=== PATIENT | female | born 1980 | race Caucasian/White ===

== ENCOUNTER 2016-10-05 13:17 | Day surgery (SDC) | payer BC ==
--- NOTE | ~2016-10-05 | EGD ---
EGD REPORT [facility] [address] [id number] NAME: PAKO FAIRAS : [birth year] STATUS : REG [facility]#: [id number] AGE: 36 ADM/REG DATE : 10/05/16 MR#: [id number] REPORT SERV DATE: 10/05/16 DICTATED BY: DATE: REPORT STATUS : Draft TRANSCRIBED BY: [employer] DATE: 10/05/16 [facility] Patient Name: Pako Farias Date of : 1980 Attending MD: HAYDEN OLSEN MD Procedure Date No Time: 10/05/2016 Procedure: Colonoscopy Indications: Chronic diarrhea Referring MD: Kierra Holliday Medicines: Monitored Anesthesia Care Complications: No immediate complications. Procedure: Pre-Anesthesia Assessment: - ASA Grade Assessment: III - A patient with severe systemic disease. After I obtained informed consent, the scope was passed under direct vision. Throughout the procedure, the patient's blood pressure, pulse, and oxygen saturations were monitored continuously. The PCF [id number] was introduced through the anus and advanced to the cecum, identified by appendiceal orifice and ileocecal valve. The colonoscopy was performed without difficulty. The patient tolerated the procedure well. The quality of the bowel preparation was fair. Findings: The perianal and digital rectal examinations were normal. A flat polyp was found in the descending colon. The polyp was diminutive in size. The polyp was removed with a cold biopsy forceps. Resection and retrieval were complete. No other significant abnormalities were identified in a careful examination of the remainder of the colon. There is no endoscopic evidence of diverticula, mass or ulcerations in the entire colon. Biopsies were taken with a cold forceps from the entire colon for evaluation of microscopic colitis. No other significant abnormalities were identified in a careful examination of the remainder of the colon. Impression: - One diminutive polyp in the descending colon. Resected and retrieved. Recommendation: - Patient has a contact number available for emergencies. The signs and symptoms of potential delayed complications were discussed with the patient. Return to normal activities tomorrow. Written discharge instructions were provided to the patient. EGD REPORT [address] [address] NAME: PAKO FARIAS : [birth year] STATUS : REG [facility] [place] PAT#: [id number] AGE: 36 ADM/REG DATE : 10/05/16 MR#: [id number] REPORT SERV DATE: 10/05/16 DICTATED BY: DATE: REPORT STATUS : Draft TRANSCRIBED BY: [place] DATE: 10/05/16 - Return to previous diet. - Discharge patient to home. - Continue present medications. - Await pathology results. - Repeat colonoscopy in 5 years for surveillance based on pathology results. - We will treat with 2 week course of Pepto Bismol 2 tabs by mouth 4 times daily. If diarrhea persists, then change omeprazole to lansoprazole OTC. Procedure Code(s): --- Professional --- 21434, Colonoscopy, flexible, proximal to splenic flexure; with biopsy, single or multiple Diagnosis Code(s): --- Professional --- D12.4, Benign neoplasm of descending colon K52.9, Noninfective gastroenteritis and colitis, unspecified CPT copyright 2013 [employer]. All rights reserved. The codes documented in this report are preliminary and upon vinyl top installer review may be revised to meet current compliance requirements. HAYDEN OLSEN MD 10/05/2016 3:31 PM This report has been signed electronically. Number of Addenda: 0 Note Initiated On: 10/05/2016 2:30 PM Scope Withdrawal Time 0 hours 5 minutes 49 seconds [address] [id number]
[~2016-10-05 13:17] MED LIST: CYTOMEL50 MCG PO; PRILO PO; VITAMIN B-122500 MCG SL; VITAMIN D31000 UNIT PO; ZOL100 PO
== END 2016-10-05 23:59 | disposition home or self-care (01) ==
LOC: DMU 13:17
PROVIDERS: Internal Medicine Gastroenterology
PROC: 0DBM8ZX Excision of Descending Colon, Via Natural or Artificial Opening Endoscopic, Diagnostic (ICD-10-PCS; principal; 2016-10-05 14:30)
DX: K63.5 Polyp of colon (principal); K52.9 Noninfective gastroenteritis and colitis, unspecified; Z86.010 Personal history of colon polyps; G43.909 Migraine, unspecified, not intractable, without status migrainosus; K21.9 Gastro-esophageal reflux disease without esophagitis; E03.9 Hypothyroidism, unspecified; F41.9 Anxiety disorder, unspecified; F32.9 Major depressive disorder, single episode, unspecified; E66.01 Morbid (severe) obesity due to excess calories; Z68.41 Body mass index [BMI] 40.0-44.9, adult; Z90.710 Acquired absence of both cervix and uterus; Z79.899 Other long term (current) drug therapy; Z87.891 Personal history of nicotine dependence; Z98.890 Other specified postprocedural states
CPT/HCPCS: 88305